=== PATIENT | female | born 1995 | race Caucasian/White ===

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

== ENCOUNTER 2022-10-07 19:33 | Inpatient (IN) | payer MEDICAID ==
[2022-10-07] MEDS ORDERED: Nalbuphine 10 MG/0.5 ML Syringe IVPUSH PRN (23:40)
[2022-10-07] MEDS ORDERED: Oxytocin/Lactated Ringers 10 UNIT/1,000 ML BAG IV SCH ×2 (23:45)
[2022-10-07] MEDS ORDERED: Lactated Ringers 1,000 ML IV SCH ×2 (23:45)
[2022-10-08] MEDS ORDERED: Methylergonovine 0.2 MG/1 ML Amp ONE (09:48)
[2022-10-08] MEDS ORDERED: Methylergonovine 0.2 MG/1 ML Amp IM STA (09:55)
[2022-10-08] MEDS ORDERED: Docusate Sodium 100 MG Cap PO PRN (10:22)
[2022-10-08] MEDS ORDERED: Benzocaine/Menthol 20%-0.5% Spray 78 GM Cannister TOP PRN (10:22)
[2022-10-08] MEDS ORDERED: Acetaminophen 325 MG Tab PO PRN (10:22)
[2022-10-08] MEDS ORDERED: Witch Hazel Medicated Pads 40/Jar TOP PRN (10:22)
[2022-10-08] MEDS: Ibuprofen 600 MG Tab PO PRN ×2 (12:30→23:56)
[2022-10-09] MEDS: Ibuprofen 600 MG Tab PO PRN (08:13)
[2022-10-09 14:05] VITALS: BP 105/65; PULSE 68
== END 2022-10-09 13:40 | disposition home or self-care (01) | DRG 807 ==
LOC: JD.OB 19:33 → JD.OBCHECK 19:33 → JD.OB 23:40 → JD.OBCHECK 23:40 → OBSVTOIN 10-08 09:43 → JD.OB 10-08 09:44
PROVIDERS: ADMIT Obstetrics & Gynecology; ATTEND Obstetrics & Gynecology
PROC: 10E0XZZ Delivery of Products of Conception, External Approach (ICD-10-PCS; principal; 2022-10-08)
PROC: 10907ZC Drainage of Amniotic Fluid, Therapeutic from Products of Conception, Via Natural or Artificial Opening (ICD-10-PCS; 2022-10-08)
DX: O34.211 Maternal care for low transverse scar from previous cesarean delivery (principal); Z37.0 Single live birth; Z3A.39 39 weeks gestation of pregnancy; O99.344 Other mental disorders complicating childbirth; F41.9 Anxiety disorder, unspecified; O99.02 Anemia complicating childbirth; R00.0 Tachycardia, unspecified; D64.9 Anemia, unspecified; O99.892 Other specified diseases and conditions complicating childbirth; O77.0 Labor and delivery complicated by meconium in amniotic fluid
CPT/HCPCS: 36415; 59025; 59409; 80053; 84112; 84439; 84443; 85025; 86592; 86850; 86900; 86901; A9270-GY; J2210; J2300; J2590; J7120